=== PATIENT | female | born 1990 | race Caucasian/White ===

== ENCOUNTER 2022-06-17 13:20 | Observation (INO) | payer SELFPAY ==
[~2022-06-17] VITALS: Ht 169 cm; Wt 74.0 kg
== END 2022-06-17 14:30 | disposition home or self-care (01) ==
LOC: EDBD → MLD 13:20
PROVIDERS: ADMIT Obstetrics & Gynecology; ATTEND Obstetrics & Gynecology
DX: O36.8130 Decreased fetal movements, third trimester, not applicable or unspecified (principal); O42.92 Full-term premature rupture of membranes, unspecified as to length of time between rupture and onset of labor; Z3A.40 40 weeks gestation of pregnancy
CPT/HCPCS: 59025; 81000; G0378

== ENCOUNTER 2022-06-19 00:40 | Inpatient (IN) | payer SELFPAY ==
[~2022-06-19] VITALS: Ht 169 cm; Wt 84.0 kg
[2022-06-19] MEDS ORDERED: CARBOPROST 250 MCG/ML AMP IM PRN (01:15)
[2022-06-19] MEDS ORDERED: NALBUPHINE 10 MG/ML AMP IVP PRN (01:15)
[2022-06-19] MEDS ORDERED: LACTATED RINGERS 1,000 ML IV SCH (01:15)
[2022-06-19] MEDS ORDERED: METHYLERGONOVINE 0.2 MG/ML AMP IM PRN ×2 (01:15→10:10)
[2022-06-19] MEDS ORDERED: ONDANSETRON 4 MG/2 ML VIAL IVP PRN (01:15)
[2022-06-19] MEDS ORDERED: OXYTOCIN 20 UNITS in LACTATED RINGERS 1,000 ML IV SCH (01:15)
[2022-06-19] MEDS ORDERED: AMPICILLIN 2,000 MG in NACL 0.9% MINI-BAG PLUS 100 ML IV SCH (01:15)
[2022-06-19 01:41] LABS: BASOPHILS % (AUTO) 0.5 % (0.0-2.0); EOSINOPHILS # (AUTO) 0.1 K/uL (0-0.4); EOSINOPHILS % (AUTO) 1.5 % (0.0-4.0); HEMATOCRIT 34.7 % (36-48); HEMOGLOBIN 12.1 g/dL (12.0-16.0); LYMPHOCYTES % (AUTO) 26.3 % (20.5-51.1); MEAN CORPUSCULAR HEMOGLOBIN 29 pg (27-31); MEAN CORPUSCULAR HGB CONC 35 g/dL (33-37); MEAN CORPUSCULAR VOLUME 83.4 fL (80-94); MONOCYTES # (AUTO) 0.8 K/uL (0.8-1.0); NEUTROPHILS # (AUTO) 4.6 K/uL (1.8-7.7); NEUTROPHILS % (AUTO) 60.7 % (42.2-75.2); PLATELET COUNT (AUTO) 229 K/uL (140-450); RED BLOOD CELL COUNT(AUTO) 4.16 MIL/uL (4.20-5.40); RED CELL DISTRIBUTION WIDTH 13.7 % (11.6-13.7); WHITE BLOOD COUNT (AUTO) 7.6 K/uL (4.8-10.8)
[2022-06-19 01:50] LABS: APPEARANCE,URINE CLEAR (CLEAR); BILIRUBIN,URINE NEGATIVE (NEGATIVE); BLOOD, URINE 1+ (NEGATIVE); COLOR,URINE YELLOW (YELLOW); LEUKOCYTE ESTERASE ,URINE 1+ (NEGATIVE); NITRITE, URINE NEGATIVE (NEGATIVE); UGLUCOSE NEGATIVE (NEGATIVE)
[2022-06-19 02:00] LABS: RBC,URINE 0-5 /HPF (0-5); WBC,URINE 0-5 /HPF (0-5)
[2022-06-19 02:01] LABS: ALBUMIN 2.5 g/dL (3.4-5.0); ANION GAP 14.5 (8-16); CARBON DIOXIDE 21.1 mmol/L (21-32); CREATININE 0.5 mg/dL (0.6-1.3); POTASSIUM 3.6 mmol/L (3.5-5.1); TOTAL BILIRUBIN 0.8 mg/dL (0.0-1.0)
[2022-06-19 02:01] LABS: BARBITURATE, URINE NEGATIVE ng/ml (NEG <=200); BENZODIAZEPINE, URINE NEGATIVE ng/mL (NEG <=200); CANNABINOID, URINE NEGATIVE ng/mL (NEG <=50); COCAINE, URINE NEGATIVE ng/mL (NEG <=300); OPIATE, URINE NEGATIVE ng/mL (NEG <=2000); PHENCYCLIDINE SCREEN,URINE NEGATIVE ng/mL (NEG <=25)
[2022-06-19] MEDS ORDERED: AMPICILLIN 2,000 MG VIAL ONE (02:29)
[2022-06-19] MEDS ORDERED: FERR325E14 PO (02:49)
[2022-06-19] MEDS ORDERED: PNV91TAB8 PO (02:49)
[2022-06-19] MEDS ORDERED: OSC500 PO (02:49)
[2022-06-19 02:51] VITALS: BP 128/73
[2022-06-19] MEDS ORDERED: OXYTOCIN 20 UNITS/LR PREMIX 1,000 ML IV ONE (03:32)
[2022-06-19] MEDS ORDERED: AMPICILLIN 1,000 MG in NACL 0.9% MINI-BAG PLUS 50 ML IV SCH (04:00)
[2022-06-19] MEDS ORDERED: AMPICILLIN 1,000 MG VIAL ONE (05:31)
[2022-06-19] MEDS ORDERED: LIDOCAINE 1% 500 MG/50 ML VIAL ONE (08:28)
[2022-06-19] MEDS ORDERED: OXYTOCIN 10 UNITS/ML VIAL IM PRN (10:10)
[2022-06-19] MEDS ORDERED: METHYLERGONOVINE 0.2 MG TAB PO PRN (10:10)
[2022-06-19] MEDS ORDERED: BENZOCAINE/MENTHOL 20%-0.5% 60 GM CAN TP PRN (10:10)
[2022-06-19] MEDS ORDERED: oxyCODONE/APAP 5/325 MG 1 TAB TAB PO PRN ×2 (10:10)
[2022-06-19] MEDS ORDERED: TEMAZEPAM 15 MG CAP PO PRN (10:10)
[2022-06-19] MEDS ORDERED: IBUPROFEN 800 MG TAB PO PRN (10:10)
--- NOTE | 2022-06-19 10:37 | NUR ---
PATIENT HAS BEEN SCREENED AND CATEGORIZED LOW NUTRITION RISK. PATIENT WILL BE SEEN WITHIN 7 DAYS OF ADMISSION. 06/26/22 REVIEWED BY MARIA ESTHER YUAN RD
[2022-06-19] MEDS ORDERED: DOCUSATE SOD/SENNA 50/8.6 MG 1 TAB PO SCH (21:00)
[2022-06-20] MEDS ORDERED: FLU VACCINE QS2022-23 0.5 ML SYR IMVAC ONE (03:45)
[2022-06-20 05:50] LABS: HEMATOCRIT 30.8 % (36-48); HEMOGLOBIN 10.6 g/dL (12.0-16.0)
== END 2022-06-20 15:10 | disposition home or self-care (01) | DRG 807 ==
LOC: MLD 00:40 → EDBD 00:40 → MFCC 10:35
PROVIDERS: ADMIT Obstetrics & Gynecology; ATTEND Obstetrics & Gynecology
PROC: 10E0XZZ Delivery of Products of Conception, External Approach (ICD-10-PCS; principal; 2022-06-19)
PROC: 0HQ9XZZ Repair Perineum Skin, External Approach (ICD-10-PCS; 2022-06-19)
DX: O48.0 Post-term pregnancy (principal); Z37.0 Single live birth; O70.0 First degree perineal laceration during delivery; Z20.822 Contact with and (suspected) exposure to COVID-19; Z3A.40 40 weeks gestation of pregnancy
CPT/HCPCS: 36415; 80053; 80305; 81001; 82948; 85018; 85025; 85610; 85730; 86592; 86762; 86886; 86900; 86901; 87086; 87340; 87653-90; 90715; J0290; J2001; J2210; J2590; J3490; J7120